=== PATIENT | male | born 1960 | race African-American/Black ===

== ENCOUNTER 2020-10-06 12:05 | Emergency (ER) | payer SELFPAY ==
[~2020-10-06] VITALS: Ht 190.5 cm; Wt 93.0 kg
[2020-10-06] MEDS ORDERED: NAPR-1176 MT (13:15)
[2020-10-06 13:25] VITALS: BP 129/77
== END 2020-10-06 13:25 | disposition home or self-care (01) ==
LOC: ER 12:05
DX: M54.5 Low back pain (principal); M79.604 Pain in right leg; R03.0 Elevated blood-pressure reading, without diagnosis of hypertension
CPT/HCPCS: 99282